=== PATIENT | female | born 1965 | race Caucasian/White ===

== ENCOUNTER 2019-10-31 00:04 | Outpatient (CLI) | payer OTHER | END 2019-10-31 00:05 | disposition critical access hospital (66) | LOC: EMS 00:04 | PROVIDERS: ATTEND Surgery | DX: M25.561 Pain in right knee (principal) | CPT/HCPCS: A0425; A0427 ==

== ENCOUNTER 2019-10-31 00:13 | Emergency (ER) | payer OTHER ==
--- NOTE | 2019-10-31 00:28 | ED Physician Documentation ---
PD HPI LOWER EXT INJURY - Stated complaint Stated Complaint: RT KNEE DISLOCATION - Chief complaint Chief Complaint: Trauma Ext - History obtained from History obtained from: Patient, EMS - History of Present Illness PD HPI LOW EXT INJURY LOCATION: Right, Knee Where injury occurred: A house / apartment Timing - onset: How many minutes ago (approximately 20 minutes [employer]) Timing - details: Abrupt onset Pain level max: 9 Pain level now: 2 (at rest) Improved by: Rest, Immobilization Worsened by: Moving, Palpating Associated symptoms: No: Weakness, Numbness Contributing factors: No: Anticoagulated, Prior ortho surgery Similar symptoms before: Diagnosis (one previous episode of right patellar dislocation approximately 5 years ago) Recently seen: Not recently seen - Additional information Additional information: patient is visiting from [place]. She went to sit on toilet in the bathroom in the house where she is staying and had sudden onset right knee pain associated with deformity of right patella; she recognized this as patellar dislocation, as she has had one such previous episode several years ago. BIBA. Given 50 micrograms IV fentanyl with good relief Review of Systems Skin: denies: Abrasion (s), Laceration (s) Musculoskeletal: reports: Joint pain, Pain with weight bearing (unable to weight bear due to pain) Neurologic: denies: Focal weakness, Numbness PD PAST MEDICAL HISTORY - Past Medical History Past Medical History: Yes Cardiovascular: Hypertension - Past Surgical History Past Surgical History: No - Present Medications Home Medications: Ambulatory Orders Medication Instructions Recorded Confirmed Lisinopril [Prinivil] 10 mg PO DAILY 10/31/19 10/31/19 estradioL [Estradiol] 0.5 mg PO DAILY 10/31/19 10/31/19 - Allergies Allergies/Adverse Reactions: Allergies Allergy/AdvReac Type Severity Reaction Status Date / Time No Known Drug Allergies Allergy Verified 10/31/19 00:31 - Living Situation Living Arrangement: reports: At home PD ED PE NORMAL - Vitals Vital signs reviewed: Yes - General General: Alert and oriented X 3, No acute distress, Well developed/nourished - Derm Derm: Normal color, Warm and dry - Extremities Extremities: No edema PD ED PE EXPANDED - Extremities Extremities: Deformity (right patella is laterally displaced from midline), Pedal Pulses Present, Sensory intact, Vascular intact Results - Vitals Vitals: Vital Signs - 24 hr 10/31/19 10/31/19 10/31/19 00:15 00:38 00:57 Temperature 36.4 C L 36.8 C Heart Rate 67 76 66 Respiratory 18 19 12 Rate Blood Pressure 148/79 H 133/67 H 133/67 H O2 Saturation 98 99 100 Oxygen O2 Source Room air Procedures - Reduction Body part reduced: Right, Patella Fracture or dislocation: Dislocation Anesthesia: Other (none given in ED (received fentanyl en route by medics)) Reduction aftercare: NV intact, Alignment improved, Crutches, Patient tolerated well, Other (knee immobilizer) PD MEDICAL DECISION MAKING - ED course Complexity details: re-evaluated patient, considered differential, d/w patient ED course: patient reported good pain relief with the fentanyl she had received en route. Additionally, the right knee was minimally flexed and thus in good position to allow for reduction. I explained to her that I would give her more pain medication if necessary, and conscious sedation could also be considered. However, with her permission, I was able to easily reduce the patella without any medications in ED. I slowly put the right knee in full extension and then slowly applied increasing medially-directed pressure to the lateral aspect of the right patella. I instructed her to tell me to stop if at any point she felt the pain was too strong. The patella was easily reduced and she did not complain of severe pain during the procedure. She immediately felt better once the patella was reduced and a gentle ROM (flexion, extension) was performed. She is NVI at the foot. Placed in knee immobilizer and crutches provided. Departure - Departure Disposition: 01 Home, Self Care Clinical Impression: Patellar dislocation Condition: Good Instructions: ED Crutch Walking, ED Immobilizer Knee, ED Dislocation Patella Follow-Up: Yonathan Locke MD [Provider Admit Priv/Credential] - Within 1 week Discharge Date/Time: 10/31/19 01:17
[2019-10-31 00:39] VITALS: BP 133/67
== END 2019-10-31 01:17 | disposition home or self-care (01) ==
LOC: ED 00:13
DX: S83.104A Unspecified dislocation of right knee, initial encounter (principal); X58.XXXA Exposure to other specified factors, initial encounter; Y93.E8 Activity, other personal hygiene; Y92.002 Bathroom of unspecified non-institutional (private) residence as the place of occurrence of the external cause; I10 Essential (primary) hypertension
CPT/HCPCS: 27560